=== PATIENT | female | born 1955 | race Caucasian/White ===

== ENCOUNTER 2018-12-19 09:40 | Day surgery (SDC) | payer MEDICARE, BC ==
--- NOTE | 2018-12-19 11:17 | NUR ---
PT TO DEPT. NO COMPLAINTS AT THIS TIME. NO FAMILY HERE WILL CALL TO NOTIFY THAT PT IS DONE. LT LOWER BACK BANDAID IN INTACT WITH NO DRAINAGE.
--- NOTE | 2018-12-19 11:43 | NUR ---
CONTINUING TO MONITOR PT. PT SITTING UP AND EATING. DENIES ANY PAIN. WAS SURPRISED SHE IS SUPPOSED TO STAY HERE FOR TWO HOURS BEFORE D.C. PT STATES TO RN "THATS PROBABLY WHY MY BP IS HIGH BECAUSE I WANT TO LEAVE" WILL CONITNUE TO MONITOR BP. PT HAS NO COMPLAINTS.
--- NOTE | 2018-12-19 12:54 | NUR ---
PT HAS WAITED PATIENTLY FOR TIME OF D.C PT VOICED TO RN THAT SHE WAS NOT HAPPY WITH HAVING TO STAY HERE AFTER BIOPSY. PT STATED "I HAD ONE OF THESE DONE IN 2017 AND DID NOT HAVE TO STAY LIKE THIS I WILL BE TALKING TO HIM ABOUT THIS" PT CONTINUES TO BE PLEASANT TO STAFF JUST DOES NOT LIKE SITUATION. PT THEN STATES TO RN "MY BP IS HIGH BECAUSE I DONT WANT TO BE HERE" PT ALSO STATES "MY BP RUNS HIGH ANYWAY." RN CAN SEE PT IS TENSE. Discharge instructions reviewed with patient. Patient verbalizes understanding. Copy given to patient to take home. PT VOICES NO QUESTIONS OR CONCERNS WITH D/C. PT READY TO GO HOME. PT HAS ALL PERSONAL BELONGINGS. PT WILL DRIVE SELF HOME. Discharged via wheelchair to private car for ride home.
== END 2018-12-19 23:34 | disposition home or self-care (01) ==
LOC: US 09:40
DX: C48.0 Malignant neoplasm of retroperitoneum (principal); E78.5 Hyperlipidemia, unspecified; E03.9 Hypothyroidism, unspecified; F32.9 Major depressive disorder, single episode, unspecified
CPT/HCPCS: 49180; 77012; 88305

== ENCOUNTER 2020-06-09 08:23 | Day surgery (SDC) | payer MEDICARE, BC ==
[~2020-06-09] VITALS: Ht 167.6 cm; Wt 74.9 kg
[~2020-06-09 08:23] MED LIST: ALPR.5 PO; DESVENLAFAXINE50 M3 PO; EUTHYROX88 MCG PO; FOLI1 PO; LISI5 PO; OXYC5; Trazodone HCl300 MG PO
--- NOTE | 2020-06-09 09:47 | NUR ---
Ambulatory in Day Surgery History, Chart, Medications and Allergies reviewed before start of procedure. Lungs clear T/O to Auscultation. Pre-Op teaching done. Pt verbalizes understanding.
--- NOTE | 2020-06-09 12:56 | NUR ---
1245-charted on this patient on manisha comer log in. all charting done by me Rachel Espitia :)
--- NOTE | 2020-06-09 13:00 | NUR ---
ASSUMED CARE RECIEVED REPORT VSS DRESSING INTACT
--- NOTE | 2020-06-09 13:51 | NUR ---
Discharge instructions reviewed with patient. Patient verbalizes understanding. Copy given to patient to take home. Patient States Post-Procedure ride home has been arranged. Discharged via wheelchair to private car for ride home.
== END 2020-06-09 13:53 | disposition home or self-care (01) ==
LOC: ORSCMMR 08:23 → ORD 10:45 → ORSCMMR 10:45
DX: C49.9 Malignant neoplasm of connective and soft tissue, unspecified (principal); I10 Essential (primary) hypertension; N18.9 Chronic kidney disease, unspecified; Z79.899 Other long term (current) drug therapy
CPT/HCPCS: 77001; 93005; 93010; A9270-GY; C1788; J0690; J1100; J1642; J2250; J2405; J2704; J3010; J7120

== ENCOUNTER 2020-06-22 14:45 | Emergency (ER) | payer MEDICARE, BC ==
[~2020-06-22] VITALS: Ht 165.1 cm; Wt 72.6 kg
[2020-06-22] MEDS ORDERED: OXYC5 PO (15:10)
== END 2020-06-22 16:45 | disposition home or self-care (01) ==
LOC: ER 14:45
DX: T82.848A Pain due to vascular prosthetic devices, implants and grafts, initial encounter (principal); M54.2 Cervicalgia; C49.9 Malignant neoplasm of connective and soft tissue, unspecified; Z88.0 Allergy status to penicillin; Z79.899 Other long term (current) drug therapy; Z92.21 Personal history of antineoplastic chemotherapy
CPT/HCPCS: 71045; 99283-25

== ENCOUNTER 2021-02-15 20:26 | Emergency (ER) | payer MEDICARE, BC ==
[~2021-02-15] VITALS: Ht 165.1 cm; Wt 68.0 kg
[~2021-02-15 20:26] MED LIST changes: +OXYC5 PO
[2021-02-15 21:09] LABS: Source, Urine Clean Catch
[2021-02-15 21:18] LABS: Hematocrit 31.6 % (33.0-51.0); Hemoglobin 10.6 g/dL (11.5-16.0); Mean Corpuscular HGB 34.6 pg (26.0-34.0); Mean Corpuscular HGB Conc 33.5 g/dL (31.5-36.5); Mean Corpuscular Volume 103 fL (80-100); Mean Platelet Volume 10.7 fL (9.1-12.4); NRBC ABSOLUTE 0.15 K/mm3 (0.00-0.02); Platelet Count 405 K/mm3 (150-400); RDW Coefficient Variation 14.6 % (11.7-14.2); RDW Standard Deviation 55.3 fL (35.1-46.3); Red Blood Cell Count 3.06 M/mm3 (3.80-5.20); White Blood Cell Count 2.49 K/mm3 (4.00-11.30)
[2021-02-15 21:19] LABS: Appearance, Urine Clear (Clear); Bilirubin, Urine Neg (Neg); Blood, Urine Neg (Neg); Color, Urine Yellow (P-Yellow); Glucose Qualitative, Urine Neg (Neg); Ketones, Urine Neg (Neg); Leukocyte Esterase, Urine Neg (Neg); Nitrite, Urine Neg (Neg); Protein, Urine Neg (Neg); Specific Gravity, Urine 1.005 (1.003-1.022); Urobilinogen, Urine NORM (Normal)
[2021-02-15 21:37] LABS: Albumin, Blood 2.8 g/dL (3.4-5.0); Albumin/Globulin Ratio 0.7 (0.8-1.8); Bilirubin, Total 0.5 mg/dL (0.1-1.0); Bun/Creatinine Ratio 7.3 (12.0-20.0); Calcium, Blood 8.9 mg/dL (8.5-10.1); Creatinine, Blood 1.09 mg/dL (0.40-1.00); Globulin, Blood 4.2 g/dL (2.2-4.0); Potassium, Blood 4.2 mmol/L (3.5-5.5)
[2021-02-15 21:38] LABS: BAND PERCENT MAN 9 % (0-8); BASOPHILS PERCENT MAN 0 % (0-2); EOSINOPHILS PERCENT MAN 0 % (0-6); LYMPHOCYTES % ATYPICAL MANUAL 1 % (0-0); LYMPHOCYTES ABSOLUTE MAN 0.64 K/mm3 (0.84-5.20); LYMPHOCYTES PERCENT MAN 25 % (21-46); MONOCYTES ABSOLUTE MAN 0.99 K/mm3 (0.16-1.47); MONOCYTES PERCENT MAN 40 % (4-13); NEUTROPHILS ABSOLUTE MAN 0.84 K/mm3 (1.96-9.15); SEG NEUTROPHILS PERCENT MAN 25 % (41-73); TOTAL CELLS COUNTED 100
[2021-02-15 22:10] LABS: SARS-Cov-2 (COVID-19) PCR, MMC NEGATIVE (NEGATIVE)
[2021-02-16] MEDS ORDERED: CIPR750 PO (00:13)
[2021-02-16] MEDS ORDERED: Cleocin HCl150 MG PO (00:13)
== END 2021-02-16 00:54 | disposition home or self-care (01) ==
LOC: ER 20:26
PROVIDERS: Physician Assistant
DX: D70.9 Neutropenia, unspecified (principal); C49.9 Malignant neoplasm of connective and soft tissue, unspecified; Z79.899 Other long term (current) drug therapy; Z88.0 Allergy status to penicillin; Z79.890 Hormone replacement therapy; Z20.822 Contact with and (suspected) exposure to COVID-19
CPT/HCPCS: 36415; 71045; 80053; 81003; 83605; 85025; 87040; 96365; 96372; 99285-25; J0692; J1447; Q5110; U0004